=== PATIENT | female | born 1985 | race Caucasian/White ===

== ENCOUNTER 2017-08-28 06:09 | Inpatient (IN) | payer BC ==
[~2017-08-28] VITALS: Ht 162.6 cm; Wt 79.9 kg
[2017-08-28] VITALS (23 sets, daily range): BP systolic 100–126; BP diastolic 56–101; PULSE 85–113; RESP 9–20; Ht 162.6 cm; Wt 79.9 kg
[~2017-08-28 06:09] MED LIST: CEFAZOLIN 2 GM/50 ML (PMX) 50 ML IVPB ONE; LACTATED RINGER'S 1,000 ML IV* ONE
[2017-08-28] MEDS ORDERED: ROCURONIUM 50 MG INJ ONE (07:00)
[2017-08-28] MEDS ORDERED: PROVENTIL HFA 6.7GM INHALER ONE (07:00)
--- NOTE | 2017-08-28 07:52 | HPN ---
Date/Time of Note Date/Time of Note DATE: 08/28/17 TIME: 07:52 Interval H&P Admission Note Pt. seen H&P reviewed: No system changes ROBI KONG MD Aug 28, 2017 07:52
[2017-08-28] MEDS ORDERED: PROPOFOL 20 ML ONE (08:02)
[2017-08-28] MEDS ORDERED: MIDAZOLAM 1 MG/ML 2 ML INJ ONE (08:02)
[2017-08-28] MEDS ORDERED: CEFAZOLIN 1 GM INJ ONE (08:18)
[2017-08-28] MEDS ORDERED: LIDOCAINE 1% (MDV) 20 ML INJ ONE (08:18)
[2017-08-28] MEDS ORDERED: FAMOTIDINE 20 MG INJ ONE (08:21)
[2017-08-28] MEDS ORDERED: DEXAMETHASONE 4 MG/ML 1 ML INJ ONE (08:21)
[2017-08-28] MEDS ORDERED: ONDANSETRON 4 MG INJ ONE (08:21)
[2017-08-28] MEDS ORDERED: ROPIVACAINE 0.2% 20 ML VIAL ONE (09:28)
[2017-08-28] MEDS ORDERED: SUGAMMADEX SODIUM 200 MG/2 ML VIAL IV ONE (09:45)
[2017-08-28] MEDS ORDERED: KETOROLAC 30 MG INJ ONE (09:45)
--- NOTE | 2017-08-28 09:49 | SIPON ---
Date/Time of Note Date/Time of Note DATE: 08/28/17 TIME: 09:46 Operative Report Preoperative Diagnosis left ovsarian cyst Postoperative Diagnosis dermoid cyst of left ovary small lesion on lt ovary ? corpus leteal cyst Operation/Procedure Performed left ovarian cystectomy biopsy of left ovary Surgeon see signature line assistant shift supervisor Reiche Anesthesia: general Estimated blood loss: 0 - 10 ml's Transfusion Required none Specimen left ovarian cyst biopsy of left ovary Grafts/Implants none Complications none ROBI KONG MD Aug 28, 2017 09:49
[2017-08-28] MEDS ORDERED: SUCCINYLCHOLINE CHLORIDE 100 MG/5 ML SYG IV ONE (10:18)
[2017-08-28] MEDS ORDERED: EPINEPHrine 0.1 MG/ML SYG ONE (10:18)
[2017-08-28] MEDS ORDERED: METOCLOPRAMIDE 10 MG INJ IV PRN (10:30)
[2017-08-28] MEDS ORDERED: ONDANSETRON 4 MG INJ IV PRN (10:30)
[2017-08-28] MEDS: HYDROmorphONE (0.2 MG/ML) 10ML SYG IV PRN ×2 (10:39→11:01)
[2017-08-28] MEDS ORDERED: IBUPROFEN 600 MG TAB PO PRN (11:00)
--- NOTE | 2017-08-28 11:14 | OPR ---
DATE OF OPERATION: 08/28/2017 PREOPERATIVE DIAGNOSIS: Left ovarian cyst. POSTOPERATIVE DIAGNOSIS: Left ovarian cyst. See pathological report. PROCEDURE: Exploratory lap and left ovarian cystectomy and biopsy of left ovarian cyst. ANESTHESIA: General. ANESTHESIOLOGIST: Ceci. BATCH ATTENDANT: daren____ SURGEON: Jerry Leonard MD ESTIMATED BLOOD LOSS: Approximately 10 mL. PROCEDURE: Under the proper induction of general anesthesia, the patient was placed in frog position. May catheter was introduced into the bladder under sterile condition, repositioned to supine. Abdominal wall was prepped and draped in usual aseptic manner. A Pfannenstiel incision was made approximately 5 cm in length and the incision carried down through the subcutaneous tissue to the anterior recti fascia which was incised transversely in length of the incision. Fascial flap was created by blunt and sharp dissection of tendinous attachment upward and downward and rectus muscles were split and peritoneum was entered. This exploration of the pelvic organs revealed that there is a cystic mass approximately 7 cm in diameter and uterus was very small, which was originating from the left ovary. A medium sized _allaxis____ was introduced into the pelvic cavity and visualizing the entire pelvic organ There is a little lower area on the left ovary which actually most likely from the ovulation but little bleeding noted also and it was grasped with Allis clamp, [place] forceps and the entire ovary was brought out through the incision and the shallow incision was made on the ovarian cortex and peeled off the enucleated cystic mass which is approximately 7 cm in length, and intact. It appeared to be grossly normal in the cyst. The fatty tissue was visualized through the cystic wall. It was sent to pathology intact. The defect was closed using 2-0 chromic catgut with a GI needle in horizontal mattress manner. The small lesion on the left ovary, most likely corpus luteum cyst, but wanted conform which was taken out and sent to pathology. The defect was closed with 2-0 chromic catgut in continuous manner and this was covered with Interceed for prevention of adhesions. Then, irrigation done and no bleeder noted. Sponge count taken which was correct. Peritoneum was closed using 0 chromic catgut in continuous manner, muscle closed with 0 chromic catgut in continuous manner. Fascia closed with #1 Vicryl in continuous manner in 2 segments and subcutaneous tissue irrigated and the bleeder controlled properly. This layer was approximated with 2-0 plain in continuous manner. Skin closed with a 4-0 Monocryl in subcuticular manner. Steri-Strip applied. Pressure dressing applied. Estimated blood loss approximately 10 mL. The patient withstood the procedure and was sent to the recovery room in stable condition. Dictated By: JERRY PABLO/DREW Conf#: [id number] DID#: [id number] CHRISTINA
[2017-08-28] MEDS: HYDROCODONE/APAP (5/325) TAB PO PRN ×2 (13:06→21:23)
[2017-08-28] MEDS: LACTATED RINGER'S 1,000 ML IV SCH ×2 (16:22→20:54)
[2017-08-29] MEDS: LACTATED RINGER'S 1,000 ML IV SCH (01:14)
[2017-08-29 04:00] VITALS: BP 94/50; PULSE 94; RESP 18
[2017-08-29 05:18] LABS: BASOPHILS % 0.2 % (0.0-2.0); HEMATOCRIT 39.7 % (37.0-47.0); HEMOGLOBIN 13.1 g/dl (12.0-16.0); LYMPHOCYTES # 2.3 10^3/ul (0.8-2.9); LYMPHOCYTES % 17.6 % (15.0-51.0); MEAN CORPUSCULAR VOLUME 94.1 fl (82.0-101.0); MEAN PLATELET VOLUME 10.4 fl (7.4-10.4); MONOCYTE # 0.6 10^3/ul (0.3-0.9); MONOCYTES % 4.6 % (0.0-11.0); NEUTROPHIL # 10.1 10^3/ul (1.6-7.5); NEUTROPHILS % 77.1 % (39.0-77.0); PLATELET COUNT 279 10^3/UL (140-415); RED BLOOD COUNT 4.22 10^6/ul (4.20-5.40); RED CELL DISTRIBUTION WIDTH 13.3 % (11.5-14.5)
--- NOTE | 2017-08-29 07:00 | PD.PPDC ---
PROJECT [employer]ER Discharge Instruction Diagnosis Final Diagnosis: left ovarian cyst (dermoid) Condition Patient Condition: Stable Diet Diet: Resume Regular Diet Activity/Restrictions Activity: May Shower Restrictions: No Lifting Nothing in the Vagina No [place] No Tampons, douche Wound/Drain Care Instructions Wound/Drain Care Instructions: Wash with soap and water Keep clean and dry Follow-up Follow-up with Physician: 2, Week/Weeks Return to clinic for TOUCH UP EDGER Instructions: Fever greater than 101 Chills Worsening abdominal pain Excessive Vaginal Bleeding More than 2 pads per hour Unable to tolerate diet Surgical Instructions: Incisional Drainage Incisional Redness ROBI KONG MD Aug 29, 2017 07:00
--- NOTE | 2017-08-29 07:05 | DS ---
Date/Time of Note Date/Time of Note DATE: 08/29/17 TIME: 07:01 Discharge Summary Admission/Discharge Info Admit Date/Time Aug 28, 2017 at 06:09 Discharge Date/Time aug 29 Discharge Diagnosis left ovarian cyst ( dermoid) Patient Condition: Stable Consults none Procedures exp lap left ovarian cystectomy Hx of Present Illness U/S left ovarian cyst Hospital Course underwent exp lap and left ovarian cystectomy had unevenful course Follow-up Plan 2wweks at office Primary Care Provider Not On Staff Doctor Time spent on discharge: < 30 minutes Pending Labs Laboratory Tests Test 08/29/17 04:42 White Blood Count 13.010^3/ul (4.8-10.8) Red Blood Count 4.2210^6/ul (4.20-5.40) Hemoglobin 13.1g/dl (12.0-16.0) Hematocrit 39.7% (37.0-47.0) Mean Corpuscular Volume 94.1fl (82.0-101.0) Mean Corpuscular Hemoglobin 31.0pg (29.0-33.0) Mean Corpuscular Hemoglobin Concent 33.0g/dl (32.0-37.0) Red Cell Distribution Width 13.3% (11.5-14.5) Platelet Count 17520^3/UL (140-415) Mean Platelet Volume 10.4fl (7.4-10.4) Neutrophils % 77.1% (39.0-77.0) Lymphocytes % 17.6% (15.0-51.0) Monocytes % 4.6% (0.0-11.0) Eosinophils % 0.0% (0.0-7.0) Basophils % 0.2% (0.0-2.0) Nucleated Red Blood Cells % 0.0/100WBC (0.0-0.0) Neutrophils # 10.110^3/ul (1.6-7.5) Lymphocytes # 2.310^3/ul (0.8-2.9) Monocytes # 0.610^3/ul (0.3-0.9) Eosinophils # 0.010^3/ul (0.0-0.5) Basophils # 0.010^3/ul (0.0-0.1) Nucleated Red Blood Cells # 0.010^3/ul (0.0-0.0) ROBI KONG MD Aug 29, 2017 07:05
[2017-08-29 07:56] VITALS: BP 116/75; RESP 15
[2017-08-29] MEDS: HYDROCODONE/APAP (5/325) TAB PO PRN ×2 (08:09→13:02)
--- NOTE | 2017-09-01 15:53 | HP ---
Date/Time of Note Date/Time of Note DATE: 09/01/17 TIME: 15:41 Assessment/Plan VTE Prophylaxis VTE Prophylaxis Intervention: ambulation Lines/Catheters IV [facility] Type [facility]from [facility] Peripheral IV Urinary Cath still in place: No Assessment/Plan Chief Complaint/Hosp Course A left ovarian cyst ( dermoid) P exp laparotomy left ovarian cystectomy poss left salphingoophorectomy Problems: HPI/ROS Admit Date/Time Admit Date/Time Aug 28, 2017 at 06:09 Hx of Present Illness 32 y.o nulligravida was seen in march 2017 for menometrorrhagia after 5yrs of no period. u/s and MRI pelvis revealed cyst on left ovary consist of dermoid cyst here for exp lap for ovarian cystectomy and poss left salphingoophorectomy.. ROS abnormal vaginal bleeding prolong period Constitutional: improved, no complaints Eyes: no complaints ENT: no complaints Respiratory: no complaints Cardiovascular: no complaints Gastrointestinal: no complaints Genitourinary: bleeding Musculoskeletal: no complaints Skin: no complaints Neurologic: no complaints Endocrine: no complaints Lymphatic: no complaints Psychological: no complaints PMH/Family/Social Past Medical History Medical History: no pertinent history Past Surgical History Past Surgical Hx: no surgical history Family History Significant Family History: diabetes (gm(m) DM), hypertension (gm(p)(m)) Social History Alcohol Use: none Smoking Status: Current every day smoker Drug Use: none Exam/Review of Systems Vital Signs Vitals Vital Signs Date Time Temp Pulse Resp B/P Pulse Ox O2 Delivery O2 Flow Rate FiO2 08/29/17 07:56 98.3 77 15 116/75 100 08/29/17 04:00 Nasal Cannula 2.0 Exam Constitutional: alert, oriented, well developed Psych: nl mood/affect, no complaints Head: atraumatic, normocephalic Eyes: EOMI, PERRL, nl conjunctiva, nl lids, nl sclera ENMT: nl external ears & nose, nl lips & teeth, nl nasal mucosa & septum Neck: non-tender, supple Respiratory: clear to auscultation, normal air movement Cardiovascular: nl pulses, regular rate and rhythm Gastrointestinal: nl liver, spleen, non-tender, soft Genitourinary - Female: other (left ovarian cyst) Musculoskeletal: nl extremities to inspection Extremities: normal pulses Neurological: SEEDLING SORTER II-XII intact, nl mental status, nl speech, nl strength Skin: nl turgor, No rash or lesions Lymph: nl lymph nodes Labs Result Diagram: 08/29/17 0442 ROIB KONG MD Sep 01, 2017 15:52
== END 2017-08-29 13:58 | disposition home or self-care (01) | DRG 743 ==
LOC: REC 06:09 → MS1 11:20
PROVIDERS: ADMIT Obstetrics & Gynecology; ATTEND Obstetrics & Gynecology
PROC: 0UB14ZZ Excision of Left Ovary, Percutaneous Endoscopic Approach (ICD-10-PCS; principal; 2017-08-28 08:00)
DX: D27.1 Benign neoplasm of left ovary (principal); F17.200 Nicotine dependence, unspecified, uncomplicated
CPT/HCPCS: 85025; 86850; 86900; 86901; 86920; 87086; 88305; J0171; J0690; J1100; J1170; J1885; J2250; J2405; J2795; J3010; J7120